=== PATIENT | male | born 1945 | race African-American/Black ===

== ENCOUNTER 2019-11-14 08:21 | Outpatient (CLI) | payer MEDICARE, OTHER, SELFPAY ==
--- NOTE | 2019-11-14 | XR_ITS ---
WS: [id number] ABDOMEN Supine view of the abdomen CLINICAL INFORMATION: MRI SCREENING COMPARISON: None. FINDINGS: Mild lumbar curve convex right. Osteopenia. Moderate spondylitic changes. Postoperative changes pedic le screw fixation L5-S1. Calcified linear structure in the right abdomen may represent abandoned [facility] s junior tubing. Otherwise no radiopaque normalities. XR/XR abdomen 1V* [id number] IMPRESSION: Examination obtained for MRI safety
--- NOTE | 2019-11-14 | XR_ITS ---
WS: [id number] CHEST XRAY TECHNIQUE: Portable chest. CLINICAL INFORMATION: MRI SCREENING COMPARISON: February 21, 2016 FINDINGS: Exam obtained for MRI safety. Heart: Normal cardiac silhouette. Lungs: Lungs are clear. No consolidation or pleural effusion. No acute pulmonary infiltrates. Bones: Normal visualized bony structures. Right rotator cuff anchor. XR/XR chest 1V [id number] IMPRESSION: No radiopaque devices
--- NOTE | 2019-11-14 08:37 | MR_ITS ---
WS: [id number] MRI LUMBAR SPINE NONCONTRAST TECHNIQUE: Sagittal T1, T2 and STIR imaging. Axial T1 and T2 imaging. CLINICAL INFORMATION: SPINAL INSTABILITY COMPARISON: MRI 2016 and myelogram 2018 FINDINGS: 12 rib-bearing thoracic vertebral levels and 6 lumbar levels. The lowest lumbar level will be referre d to as L6. Mild lumbar curve. No acute compression. Pedicle screw fixation L5-L6. Slight retrolisthesis L2 on L3 and L3 on L4. Disc space narrowing at these levels has progressed. L1-L2: Normal. L2-L3: Mild disc osteophytic ridging. Narrowing of the subarticular recess bilaterally. Mild left and no significant right foraminal narrowing. Mild facet arthropathy. L3-L4: Slight retrolisthesis. Disc osteophyte complex endplate ridging. Mild to moderate central sundar l stenosis. Moderate facet arthropathy. Moderate left and mild right foraminal narrowing. Moderate fa cet arthropathy. L4-L5: Mild disc bulging and osteophytic ridging. Moderate central canal stenosis. Moderate facet art hropathy. Moderate left greater than right foraminal narrowing. L5-L6: Grade 1 anterolisthesis L5 on L6. Spinal canal is patent. Mild to moderate bilateral foraminal narrowing. L6-S1: No significant disc bulging. Spinal canal and foramen are patent. Mild facet arthropathy. Visualized pelvic bony structures: Normal. Paravertebral soft tissues: Normal. MR/MR lumbar spine wo con* [id number] IMPRESSION: 1. 12 rib-bearing thoracic vertebral levels and 6 lumbar levels. The lowest donya mbar level will be referred to as L6. 2. Grade 1 anterolisthesis L5 on L6 pedicle screw fixation is new from previou s. 3. Slight retrolisthesis L2 on L3 and L3 on L4 with mild disc space narrowing progressed from previous. 4. Moderate central canal stenosis L3-L4 and L4-L5 progressed from the prior e xaminations. 5. Mild to moderate bony foraminal narrowing described above. 6. No other change from previous.
--- NOTE | 2019-11-14 10:15 | XR_ITS ---
WS: [id number] SKULL TECHNIQUE: 4 views of the skull CLINICAL INFORMATION: MRI SAFETY - POSSIBLE IMPLANT COMPARISON: None. FINDINGS: No evidence of intracranial shunt. No metallic foreign bodies. XR/XR skull <4V [id number] IMPRESSION: Examination obtained for MRI safety
== END 2019-11-14 08:22 | disposition home or self-care (01) ==
LOC: RADWPI 08:29
PROVIDERS: Family Provider Family Medicine; PCP Family Medicine; Visit Provider Family Medicine
DX: M53.2X9 Spinal instabilities, site unspecified (principal); Z01.818 Encounter for other preprocedural examination; M48.061 Spinal stenosis, lumbar region without neurogenic claudication
CPT/HCPCS: 70250; 71045; 72148; 74018

== ENCOUNTER 2020-09-05 06:00 | Outpatient (RCR) | payer MEDICARE, OTHER, SELFPAY | END 2020-09-29 23:59 | disposition home or self-care (01) | LOC: SPT 06:00 | PROVIDERS: PCP Family Medicine; Referring Provider Physician Assistant Medical; Visit Provider Physician Assistant Medical | DX: M54.9 Dorsalgia, unspecified (principal); G89.29 Other chronic pain | CPT/HCPCS: 97110; 97140; 97161; 97530 ==

== ENCOUNTER 2020-09-30 06:00 | Outpatient (RCR) | payer MEDICARE, OTHER, SELFPAY | END 2020-10-30 23:59 | disposition home or self-care (01) | LOC: SPT 06:00 | PROVIDERS: PCP Family Medicine; Referring Provider Physician Assistant Medical; Visit Provider Physician Assistant Medical | DX: R10.2 Pelvic and perineal pain (principal); M54.9 Dorsalgia, unspecified; G89.29 Other chronic pain | CPT/HCPCS: 97110; 97116; 97140; 97530 ==

== ENCOUNTER 2020-10-31 06:00 | Outpatient (RCR) | payer MEDICARE, OTHER, SELFPAY | END 2020-11-29 23:59 | disposition home or self-care (01) | LOC: SPT 06:00 | PROVIDERS: PCP Family Medicine; Referring Provider Physician Assistant Medical; Visit Provider Physician Assistant Medical | DX: R10.2 Pelvic and perineal pain (principal); M54.9 Dorsalgia, unspecified | CPT/HCPCS: 97110; 97116; 97530 ==

== ENCOUNTER 2020-11-30 06:00 | Outpatient (RCR) | payer MEDICARE, OTHER, SELFPAY | END 2020-12-30 23:59 | disposition home or self-care (01) | LOC: SPT 06:00 | PROVIDERS: PCP Family Medicine; Referring Provider Physician Assistant Medical; Visit Provider Physician Assistant Medical | DX: R10.2 Pelvic and perineal pain (principal); M54.9 Dorsalgia, unspecified | CPT/HCPCS: 97110; 97530 ==

== ENCOUNTER 2020-12-31 06:00 | Outpatient (RCR) | payer MEDICARE, OTHER, SELFPAY | END 2021-01-29 23:59 | disposition home or self-care (01) | LOC: SPT 06:00 | PROVIDERS: PCP Family Medicine; Referring Provider Physician Assistant Medical; Visit Provider Physician Assistant Medical | DX: R10.2 Pelvic and perineal pain (principal); M54.9 Dorsalgia, unspecified | CPT/HCPCS: 97110; 97112; 97530 ==

== ENCOUNTER 2021-01-30 06:00 | Outpatient (RCR) | payer MEDICARE, OTHER, SELFPAY | END 2021-03-01 23:59 | disposition home or self-care (01) | LOC: SPT 06:00 | PROVIDERS: PCP Family Medicine; Referring Provider Physician Assistant Medical; Visit Provider Physician Assistant Medical | DX: R10.2 Pelvic and perineal pain (principal); M54.9 Dorsalgia, unspecified | CPT/HCPCS: 97110; 97112; 97530 ==

== ENCOUNTER 2021-03-02 06:00 | Outpatient (RCR) | payer MEDICARE, OTHER, SELFPAY | END 2021-04-01 23:59 | disposition home or self-care (01) | LOC: SPT 06:00 | PROVIDERS: PCP Family Medicine; Referring Provider Physician Assistant Medical; Visit Provider Physician Assistant Medical | DX: R10.2 Pelvic and perineal pain (principal); M54.9 Dorsalgia, unspecified; G89.29 Other chronic pain | CPT/HCPCS: 97110; 97112; 97140; 97530 ==

== ENCOUNTER 2021-04-02 06:00 | Outpatient (RCR) | payer MEDICARE, OTHER, SELFPAY | END 2021-04-29 23:59 | disposition home or self-care (01) | LOC: SPT 06:00 | PROVIDERS: PCP Family Medicine; Referring Provider Physician Assistant Medical; Visit Provider Physician Assistant Medical | DX: R10.2 Pelvic and perineal pain (principal); M54.9 Dorsalgia, unspecified; G89.29 Other chronic pain | CPT/HCPCS: 97110; 97530 ==

== ENCOUNTER 2021-04-30 06:00 | Outpatient (RCR) | payer MEDICARE, OTHER, SELFPAY | END 2021-05-30 23:59 | disposition home or self-care (01) | LOC: SPT 06:00 | PROVIDERS: PCP Family Medicine; Referring Provider Physician Assistant Medical; Visit Provider Physician Assistant Medical | DX: R10.2 Pelvic and perineal pain (principal); M54.9 Dorsalgia, unspecified | CPT/HCPCS: 97110 ==

== ENCOUNTER 2021-05-31 06:00 | Outpatient (RCR) | payer MEDICARE, OTHER, SELFPAY | END 2021-06-19 23:59 | disposition home or self-care (01) | LOC: SPT 06:00 | PROVIDERS: PCP Family Medicine; Referring Provider Physician Assistant Medical; Visit Provider Physician Assistant Medical | DX: R10.2 Pelvic and perineal pain (principal); M54.9 Dorsalgia, unspecified; G89.29 Other chronic pain | CPT/HCPCS: 97110 ==

== ENCOUNTER 2023-03-10 10:27 | Outpatient (RCR) | payer MEDICARE, OTHER, SELFPAY | END 2023-04-01 23:59 | disposition home or self-care (01) | LOC: SPT 10:27 | PROVIDERS: PCP Family Medicine; Visit Provider Family Medicine | DX: G83.89 Other specified paralytic syndromes (principal) | CPT/HCPCS: 97110; 97161 ==

== ENCOUNTER 2023-04-02 06:00 | Outpatient (RCR) | payer MEDICARE, OTHER, SELFPAY | END 2023-04-30 23:59 | disposition home or self-care (01) | LOC: SPT 06:00 | PROVIDERS: PCP Family Medicine; Visit Provider Family Medicine | DX: G72.89 Other specified myopathies (principal) | CPT/HCPCS: 97110 ==

== ENCOUNTER 2023-05-01 06:00 | Outpatient (RCR) | payer MEDICARE, OTHER, SELFPAY | END 2023-05-31 23:59 | disposition home or self-care (01) | LOC: SPT 06:00 | PROVIDERS: PCP Family Medicine; Visit Provider Family Medicine | DX: R26.89 Other abnormalities of gait and mobility (principal); M62.81 Muscle weakness (generalized) | CPT/HCPCS: 97110 ==

== ENCOUNTER 2023-06-01 06:00 | Outpatient (RCR) | payer MEDICARE, OTHER, SELFPAY | END 2023-06-30 23:59 | disposition home or self-care (01) | LOC: SPT 06:00 | PROVIDERS: PCP Family Medicine; Visit Provider Family Medicine | DX: R26.89 Other abnormalities of gait and mobility (principal); M62.81 Muscle weakness (generalized) | CPT/HCPCS: 97110 ==

== ENCOUNTER 2023-08-18 11:37 | Outpatient (RCR) | payer MEDICARE, OTHER, SELFPAY | END 2023-08-30 23:59 | disposition home or self-care (01) | LOC: SPT 11:37 | PROVIDERS: PCP Family Medicine; Visit Provider Family Medicine | DX: M25.511 Pain in right shoulder (principal) | CPT/HCPCS: 97110; 97162 ==

== ENCOUNTER 2023-08-31 06:00 | Outpatient (RCR) | payer MEDICARE, OTHER, SELFPAY | END 2023-09-30 23:59 | disposition home or self-care (01) | LOC: SPT 06:00 | PROVIDERS: PCP Family Medicine; Visit Provider Family Medicine | DX: M25.511 Pain in right shoulder (principal) | CPT/HCPCS: 97110 ==

== ENCOUNTER 2023-10-01 06:00 | Outpatient (RCR) | payer MEDICARE, OTHER, SELFPAY | END 2023-10-31 23:59 | disposition home or self-care (01) | LOC: SPT 06:00 | PROVIDERS: PCP Family Medicine; Visit Provider Family Medicine | DX: M25.511 Pain in right shoulder (principal) | CPT/HCPCS: 97110; G0283 ==

== ENCOUNTER 2024-01-11 14:00 | Outpatient (CLI) | payer OTHER, SELFPAY ==
--- NOTE | 2024-01-11 14:04 | US_ITS ---
WS: [id number] RENAL ULTRASOUND HISTORY: STAGE 3B CHRONIC KIDNEY DZ COMPARISON: 05/15/2016 TECHNIQUE: 2-D and color Doppler imaging of the kidney submitted. Right kidney: 11.0 cm x 5.8 cm x 5.0 cm. Cortex: 1.3 cm Normal size kidney. No hydronephrosis. Simple cyst in the central renal pelvis measures 3.8 x 3.3 x 3 .8 cm. This cyst has increased in size since the study from 2017. There is through transmission. No s olid component or increased vascularity. Left kidney: 11.0 cm x 4.8 cm x 5.5 cm. Cortex: 1.2 cm Normal size kidney with no hydronephrosis. Simple cyst in the lower pole measures 2.0 x 1.7 x 1.6 cm. This cyst was not identified in 2017. Aorta: Normal. Urinary Bladder: Minimally distended. Diffuse bladder wall thickening is probably due to under disten tion. US/US renal BI* [id number] IMPRESSION: 1. Normal size kidneys with no cortical atrophy. 2. Bilateral renal cysts.
== END 2024-01-11 14:01 | disposition home or self-care (01) ==
PROVIDERS: PCP Family Medicine; Visit Provider Internal Medicine Nephrology
DX: N18.32 Chronic kidney disease, stage 3b (principal); Q61.02 Congenital multiple renal cysts
CPT/HCPCS: 76770

== ENCOUNTER → 2024-08-30 13:53 | Outpatient (BNVA) | payer MEDICARE, OTHER, SELFPAY | PROVIDERS: PCP Family Medicine; Visit Provider Podiatrist Foot & Ankle Surgery | DX: M79.671 Pain in right foot (principal); M79.672 Pain in left foot; M21.372 Foot drop, left foot; Z86.73 Personal history of transient ischemic attack (TIA), and cerebral infarction without residual deficits; E11.42 Type 2 diabetes mellitus with diabetic polyneuropathy; M20.41 Other hammer toe(s) (acquired), right foot; M20.42 Other hammer toe(s) (acquired), left foot | CPT/HCPCS: 73630; 99204 ==

== ENCOUNTER 2024-11-29 12:40 | Outpatient (RCR) | payer OTHER, SELFPAY | END 2024-11-29 23:59 | disposition home or self-care (01) | LOC: SPT 12:40 | PROVIDERS: Visit Provider Family Medicine Geriatric Medicine | DX: I69.854 Hemiplegia and hemiparesis following other cerebrovascular disease affecting left non-dominant side (principal) | CPT/HCPCS: 97161 ==

== ENCOUNTER 2024-11-30 05:00 | Outpatient (RCR) | payer OTHER, SELFPAY | END 2024-12-30 23:59 | disposition home or self-care (01) | LOC: SPT 05:00 | PROVIDERS: Visit Provider Family Medicine Geriatric Medicine | DX: I69.854 Hemiplegia and hemiparesis following other cerebrovascular disease affecting left non-dominant side (principal) | CPT/HCPCS: 97110; 97112; 97530 ==

== ENCOUNTER 2024-12-31 05:00 | Outpatient (RCR) | payer OTHER, SELFPAY | END 2025-01-29 23:59 | disposition home or self-care (01) | LOC: SPT 05:00 | PROVIDERS: Visit Provider Family Medicine Geriatric Medicine | DX: I69.854 Hemiplegia and hemiparesis following other cerebrovascular disease affecting left non-dominant side (principal) | CPT/HCPCS: 97110; 97112 ==

== ENCOUNTER 2025-01-30 06:30 | Outpatient (RCR) | payer OTHER, SELFPAY | END 2025-02-06 09:25 | disposition home or self-care (01) | LOC: SPT 06:30 | PROVIDERS: Visit Provider Family Medicine Geriatric Medicine | DX: I69.854 Hemiplegia and hemiparesis following other cerebrovascular disease affecting left non-dominant side (principal) | CPT/HCPCS: 97110 ==